=== PATIENT | female | born 1975 | race American Indian/Alaskan Native ===

== ENCOUNTER 2016-12-08 20:59 | Emergency (ER) | payer OTHER ==
[2016-12-08 22:12] LABS: Basophils % (Auto) 0.9 % (0.0-1.8); Eosinophils % (Auto) 2.2 % (0.0-4.3); Hematocrit 34.9 % (30.3-42.9); Mean Corpuscular HGB Conc 32 % (30-34); Mean Corpuscular Hemoglobin 25 pg (28-32); Mean Corpuscular Volume 80 fl (79-97); Platelet Count 345 K/mm3 (140-440); Red Blood Count 4.38 M/mm3 (3.65-5.03); Red Cell Distribution Width 18.1 % (13.2-15.2); White Blood Count 6.7 K/mm3 (4.5-11.0)
[2016-12-08 22:49] LABS: Anion Gap 16 mmol/L; BUN/Creatinine Ratio 11.66; Blood Urea Nitrogen 7 mg/dL (7-17); Carbon Dioxide 24 mmol/L (22-30); Chloride 99.9 mmol/L (98-107); Glucose 108 mg/dL (65-100); Potassium 4.1 mmol/L (3.6-5.0); Sodium 136 mmol/L (137-145)
[2016-12-08 23:10] LABS: Bilirubin,Urine NEG (Negative); Blood,Urine SM (Negative); Ketones,Urine NEG (Negative); Leukocyte Esterase,Urine TR (Negative); Nitrite,Urine NEG (Negative); Protein,Urine <15 mg/dL mg/dL (Negative); RBC,Urine < 1.0 /HPF (0.0-6.0); Urobilinogen,Urine < 2.0 mg/dL (<2.0); WBC,Urine < 1.0 /HPF (0.0-6.0)
--- NOTE | 2016-12-09 00:13 | Emergency Department Report ---
ED Shortness of Breath HPI - General Chief Complaint: Dyspnea/Respdistress Stated Complaint: INSECT BITE Time Seen by Provider: 12/09/16 00:11 Source: patient Mode of arrival: Ambulatory Limitations: No Limitations - History of Present Illness Initial Comments: Patient here complaining of shortness of breath with stiffnecked time 2 hours after pain in by a tick that she thinks came off her dog. She said this happened on Tuesday. Denies any coughing or chest pain. Patient blood pressure is 155/105 and she denies any history of high blood pressure. She reports she is nervous. She said her daughter got up around take she presented to me in the emergency room and to take out of her back. Denies any swelling of throat or face. Denies any difficulty swallowing. She reports that she is having pain 3 out of 10 and localizes to the side on her back. Denies any history of heart disease or lung disease. Denies any nausea vomiting. Denies any numbness or tingling to extremities. Tetanus shot is up-to-date. MD Complaint: shortness of breath Onset/Timin -: hour(s) Radiation: back (at bite site to left upper back) Pain Scale: 3 Quality: dull Consistency: intermittent Improves With: nothing Worsens With: movement Context: other (tick bite) Associated Symptoms: denies other symptoms (she initially complaining of neck stiffnes that she reports that she was not having neck stiffness at present) Treatments Prior to Arrival: none - Related Data Home Oxygen Therapy: No Previous Rx's Medication Instructions Recorded Last Taken Type Doxycycline [Vibramycin CAP] 100 mg PO Q12HR #20 capsule 12/09/16 Unknown Rx Allergies Allergy/AdvReac Type Severity Reaction Status Date / Time amoxicillin Allergy Rash Verified 12/08/16 21:34 erythromycin base Allergy Rash Verified 12/08/16 21:34 ED Review of Systems ROS: Stated complaint: INSECT BITE Other details as noted in HPI Comment: All other systems reviewed and negative Constitutional: denies: chills, fever ENT: denies: ear pain, throat pain, congestion Respiratory: shortness of breath, SOB with exertion, SOB at rest. denies: cough , orthopnea, wheezing Cardiovascular: denies: chest pain, palpitations, orthopnea, edema, syncope Gastrointestinal: abdominal pain. denies: nausea, vomiting, diarrhea Musculoskeletal: denies: back pain, arthralgia, myalgia Skin: other (tick bite to left upper back.) Neurological: denies: headache, weakness, numbness, paresthesias, confusion, abnormal gait, vertigo ED Past Medical Hx - Past Medical History Previous Medical History?: Yes Additional medical history: Fibroids - Surgical History Past Surgical History?: Yes Additional Surgical History: Tubal - Family History Family history: hypertension - Social History Smoking Status: Never Smoker Substance Use Type: None - Medications Home Medications: Home Medications Medication Instructions Recorded Confirmed Last Taken Type Doxycycline [Vibramycin CAP] 100 mg PO Q12HR #20 capsule 12/09/16 Unknown Rx ED Physical Exam - General Limitations: No Limitations General appearance: alert, anxious (mild anxiety) - Head Head exam: Present: atraumatic, normocephalic, normal inspection - Eye Eye exam: Present: normal appearance, PERRL - ENT ENT exam: Present: normal exam, normal orophraynx, mucous membranes moist, TM's normal bilaterally, normal external ear exam - Neck Neck exam: Present: normal inspection, full ROM. Absent: tenderness, meningismus, lymphadenopathy - Expanded Neck Exam Expanded Neck exam: Absent: tenderness, midline deformity, anterior neck swelling, tracheal deviation - Respiratory Respiratory exam: Present: normal lung sounds bilaterally. Absent: respiratory distress, chest wall tenderness - Cardiovascular Cardiovascular Exam: Present: regular rate, normal rhythm, normal heart sounds - GI/Abdominal GI/Abdominal exam: Present: soft, normal bowel sounds. Absent: distended, tenderness, guarding, rebound, rigid - Extremities Exam Extremities exam: Present: normal inspection, full ROM, normal capillary refill. Absent: tenderness, pedal edema, joint swelling, calf tenderness - Back Exam Back exam: Present: normal inspection, full ROM. Absent: tenderness, CVA tenderness (R), CVA tenderness (L), muscle spasm, paraspinal tenderness, vertebral tenderness - Expanded Back Exam Expanded Back exam: Absent: saddle anesthesia Back exam: Negative Straight Leg Raising: Left, Right - Neurological Exam Neurological exam: Present: alert, oriented X3, normal gait, reflexes normal. Absent: motor sensory deficit - Psychiatric Psychiatric exam: Present: normal affect, normal mood - Skin Skin exam: Present: warm, dry, rash, erythema. Absent: petechiae, pallor, abrasion, ecchymosis - Expanded Skin Exam Expanded Type of lesion: Present: bite/sting Distribution of rash: back (left upper back with small indurated areawindow open into the Center. Erythema, no drainage. No foreign body noted.) Description of rash: Present: tenderness, erythematous, swelling, indurated. Absent: vesicular, blisters, petechial, purpuic, crusting, discharge, fluctuant ED Course Vital Signs 12/08/16 12/09/16 21:05 00:57 Temperature 98.4 F 97.8 F Pulse Rate 80 74 Respiratory 18 20 Rate Blood Pressure 155/105 119/91 [Right] O2 Sat by Pulse 99 98 Oximetry Vital Signs 12/08/16 12/09/16 21:05 00:57 Temperature 98.4 F 97.8 F Pulse Rate 80 74 Respiratory 18 20 Rate Blood Pressure 155/105 119/91 [Right] O2 Sat by Pulse 99 98 Oximetry - Reevaluation(s) Reevaluation #1: 12/09/16 00:54 Patient stable throughout ED stay. She was a little anxious at first but she is calm down. 12/09/16 00:59 ED Medical Decision Making - Lab Data Result diagrams: 12/08/16 21:52 12/08/16 21:52 Lab Results 12/08/16 12/08/16 12/08/16 Range/Units 21:52 21:52 21:52 WBC 6.7 (4.5-11.0) K/mm3 RBC 4.38 (3.65-5.03) M/mm3 Hgb 11.0 (10.1-14.3) gm/dl Hct 34.9 (30.3-42.9) % MCV 80 (79-97) fl MCH 25 L (28-32) pg MCHC 32 (30-34) % RDW 18.1 H (13.2-15.2) % Plt Count 345 (140-440) K/mm3 Lymph % (Auto) 44.7 H (13.4-35.0) % [place] % (Auto) 10.8 H (0.0-7.3) % Eos % (Auto) 2.2 (0.0-4.3) % Baso % (Auto) 0.9 (0.0-1.8) % Lymph # 3.0 (1.2-5.4) K/mm3 [place] # 0.7 (0.0-0.8) K/mm3 Eos # 0.1 (0.0-0.4) K/mm3 Baso # 0.1 (0.0-0.1) K/mm3 Seg Neutrophils % 41.4 (40.0-70.0) % Seg Neutrophils # 2.8 (1.8-7.7) K/mm3 VBG pH (7.320-7.420) Sodium 136 L (137-145) mmol/L Potassium 4.1 (3.6-5.0) mmol/L Chloride 99.9 (98-107) mmol/L Carbon Dioxide 24 (22-30) mmol/L Anion Gap 16 mmol/L BUN 7 (7-17) mg/dL Creatinine 0.6 L (0.7-1.2) mg/dL Estimated GFR > 60 ml/min BUN/Creatinine Ratio 11.66 % Glucose 108 H (65-100) mg/dL Calcium 9.0 (8.4-10.2) mg/dL Troponin T < 0.010 (0.00-0.029) ng/mL NT-Pro-B Natriuret Pep (0-450) pg/mL HCG, Qual Negative (Negative) Urine Color (Yellow) Urine Turbidity (Clear) Urine pH (5.0-7.0) Ur Specific [place] (1.003-1.030) Urine Protein (Negative) mg/dL Urine Glucose (UA) (Negative) mg/dL Urine Ketones (Negative) mg/dL Urine Blood (Negative) Urine Nitrite (Negative) Urine Bilirubin (Negative) Urine Urobilinogen (<2.0) mg/dL Ur Leukocyte Esterase (Negative) Urine WBC (Auto) (0.0-6.0) /HPF Urine RBC (Auto) (0.0-6.0) /HPF U Epithel Cells (Auto) (0-13.0) /HPF 12/08/16 12/08/16 12/08/16 Range/Units 21:52 21:52 Unknown WBC (4.5-11.0) K/mm3 RBC (3.65-5.03) M/mm3 Hgb (10.1-14.3) gm/dl Hct (30.3-42.9) % MCV (79-97) fl MCH (28-32) pg MCHC (30-34) % RDW (13.2-15.2) % Plt Count (140-440) K/mm3 Lymph % (Auto) (13.4-35.0) % [place] % (Auto) (0.0-7.3) % Eos % (Auto) (0.0-4.3) % Baso % (Auto) (0.0-1.8) % Lymph # (1.2-5.4) K/mm3 [place] # (0.0-0.8) K/mm3 Eos # (0.0-0.4) K/mm3 Baso # (0.0-0.1) K/mm3 Seg Neutrophils % (40.0-70.0) % Seg Neutrophils # (1.8-7.7) K/mm3 VBG pH 7.322 (7.320-7.420) Sodium (137-145) mmol/L Potassium (3.6-5.0) mmol/L Chloride (98-107) mmol/L Carbon Dioxide (22-30) mmol/L Anion Gap mmol/L BUN (7-17) mg/dL Creatinine (0.7-1.2) mg/dL Estimated GFR ml/min BUN/Creatinine Ratio % Glucose (65-100) mg/dL Calcium (8.4-10.2) mg/dL Troponin T (0.00-0.029) ng/mL NT-Pro-B Natriuret Pep 9.77 (0-450) pg/mL HCG, Qual (Negative) Urine Color Colorless (Yellow) Urine Turbidity Clear (Clear) Urine pH 6.0 (5.0-7.0) Ur Specific [place] 1.002 L (1.003-1.030) Urine Protein <15 mg/dl (Negative) mg/dL Urine Glucose (UA) Neg (Negative) mg/dL Urine Ketones Neg (Negative) mg/dL Urine Blood Sm (Negative) Urine Nitrite Neg (Negative) Urine Bilirubin Neg (Negative) Urine Urobilinogen < 2.0 (<2.0) mg/dL Ur Leukocyte Esterase Tr (Negative) Urine WBC (Auto) < 1.0 (0.0-6.0) /HPF Urine RBC (Auto) < 1.0 (0.0-6.0) /HPF U Epithel Cells (Auto) 1.0 (0-13.0) /HPF - Radiology Data Radiology results: report reviewed Chest x-ray reveals no acute cardiopulmonary findings - Medical Decision Making ED course: Patient here reported that she was feeling shortness of breath and neck stiffness a couple hours prior to coming to the emergency room after being bitten by a tick 2 days prior. Patient with examination and noted to have small , erythema indurated area with no foreign body to upper back area. Patient was not having any shortness of breath with examination normal she having any neck stiffness. She appears to have anxiety related to help problem. I discussed with patient that her lab work shows no sign of infection and urinalysis within normal limits. I explained to her liver x-ray was negative for any abnormalities and her cardiac lab work was within normal limits. Patient observed and remained stable in the emergency room without any respiratory difficulties. Patient does have a primary care and I told her to call to schedule appointment for follow-up visit tick bite and probable testing for Lyme disease. I instructed her that this will not show up right away and it's better if she has lab testing done with her primary care physician because she might have to have a series of lab work done. She discharged home with prescription for doxycycline she voices understanding of discharge diagnosis and treatment plan. Critical care attestation.: If time is entered above; I have spent that time in minutes in the direct care of this critically ill patient, excluding procedure time. ED Disposition Clinical Impression: Shortness of breath, Anxiety about health Tick bite of back Qualifiers: Encounter type: initial encounter Qualified Code(s): S30.860A - Insect bite ( nonvenomous) of lower back and pelvis, initial encounter Disposition: DISCHARGED TO HOME OR SELFCARE Is pt being admited?: No Does the pt Need Aspirin: No Condition: Stable Instructions: Tick Bite (ED), Dyspnea (ED) Additional Instructions: Please take antibiotic as prescribed. Drink plenty of fluid. Follow up Primary care physician U can call in the morning to schedule appointment. Prescriptions: Doxycycline [Vibramycin CAP] 100 mg PO Q12HR #20 capsule Referrals: PRIMARY CARE [Primary Care Provider] - 12/10/16 Forms: Accompanied Note, Work/School Release Form(ED)
--- NOTE | 2016-12-09 00:20 | XRay Report ---
FINAL REPORT PROCEDURE: XR CHEST ROUTINE 2V TECHNIQUE: A portable AP chest radiograph was obtained at 12/08/2016 22:39 (EST) . CPT 02245 HISTORY: Shortness of breath COMPARISON: No prior studies are available for comparison. FINDINGS: Heart: Normal. Mediastinum/Vessels: Normal. Lungs/Pleural space: Normal. Bony thorax: No acute osseous abnormality. Life support devices: None. IMPRESSION: No acute cardiopulmonary abnormality.
[2016-12-09 00:58] VITALS: BP 119/91
== END 2016-12-09 01:17 | disposition home or self-care (01) ==
LOC: ED 20:59
DX: S30.860A Insect bite (nonvenomous) of lower back and pelvis, initial encounter (principal); R06.02 Shortness of breath; F41.9 Anxiety disorder, unspecified; Z98.51 Tubal ligation status; W57.XXXA Bitten or stung by nonvenomous insect and other nonvenomous arthropods, initial encounter; Y93.89 Activity, other specified; Y92.89 Other specified places as the place of occurrence of the external cause; Y99.8 Other external cause status
CPT/HCPCS: 36415; 71020; 80048; 81001; 82805; 83880; 84484; 84703; 85025; 93005; 93010; 99284

== ENCOUNTER 2017-12-01 20:37 | Emergency (ER) | payer OTHER, MEDICARE ==
[2017-12-01] MEDS ORDERED: MOTRIN PO ONE (21:11)
[2017-12-01] MEDS ORDERED: MOTRIN ONE (21:12)
--- NOTE | 2017-12-01 22:47 | XRay Report ---
FINAL REPORT EXAM: XR ELBOW BILAT 2V HISTORY: Bilateral elbow pain TECHNIQUE: AP and lateral views of each elbow PRIORS: None. FINDINGS: No evidence for acute fracture or dislocation is seen. The soft tissues are unremarkable. The anterior fat pad is normal. No posterior fat pad is noted. Bony mineralization is normal. IMPRESSION: No acute soft tissue or bony abnormality noted in either elbow.
--- NOTE | 2017-12-01 23:26 | XRay Report ---
FINAL REPORT PROCEDURE: XR SPINE LUMBOSACRAL 2-3V TECHNIQUE: Lumbar spine radiographs, frontal and lateral views. CPT 70736 HISTORY: Lower back pain. COMPARISON: No prior studies are available for comparison. FINDINGS: Alignment: Normal . Vertebral body heights/Disk spaces: Normal. Partial sacralization of L5 with pseudoarthrosis. Tiny multilevel osteophytes. Fracture(s): None . Facets: Normal . Bone mineralization: Normal . Other: Pelvic phleboliths. IMPRESSION: Mild degenerative changes of the lumbar spine without radiographic evidence of acute abnormality.
--- NOTE | 2017-12-01 23:29 | XRay Report ---
FINAL REPORT PROCEDURE: XR SPINE CERVICAL 4V TECHNIQUE: Cervical spine radiographs, minimum of four views, including AP, lateral, open-mouth odontoid and swimmer's projections. HISTORY: Neck pain. COMPARISON: No prior studies are available for comparison. FINDINGS: Prevertebral soft tissues: Normal. Alignment: Normal. Mild straightening of cervical lordosis. Vertebral body heights/Disk spaces: Normal. Fracture(s): None. Neural foramina: Normal. Facets: Normal. Bone mineralization: Normal. IMPRESSION: No radiographic evidence of fracture. Mild straightening of cervical lordosis, consider patient positioning or muscle spasm.
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
[2017-12-02 01:10] VITALS: BP 120/80
== END 2017-12-02 01:21 | disposition home or self-care (01) ==
LOC: ED 20:37
DX: S56.912A Strain of unspecified muscles, fascia and tendons at forearm level, left arm, initial encounter (principal); S39.012A Strain of muscle, fascia and tendon of lower back, initial encounter; Z88.1 Allergy status to other antibiotic agents; Z98.51 Tubal ligation status; V89.2XXA Person injured in unspecified motor-vehicle accident, traffic, initial encounter
CPT/HCPCS: 72040; 72100; 99283